=== PATIENT | male | born 1940 | race Caucasian/White ===

== ENCOUNTER → 2017-02-21 | Outpatient (CLI) | payer MEDICARE ==
[~2017-02-21] MED LIST: AMLO10TA2 PO; ASPI-555 PO; DULO60CA44 PO; GEMF600T3 PO; LEVO50TA11 PO; LEVO75TA10 PO; LOSA100T29 PO; MELO-108 PO; PROP60CA2 PO; TERA2CAP4 PO
== END | disposition home or self-care (01) ==
LOC: OIH 16:08
PROVIDERS: ATTEND Family Medicine
DX: S99.912A Unspecified injury of left ankle, initial encounter (principal); M19.072 Primary osteoarthritis, left ankle and foot; M77.32 Calcaneal spur, left foot; X58.XXXA Exposure to other specified factors, initial encounter; Y93.89 Activity, other specified; Y92.89 Other specified places as the place of occurrence of the external cause; Y99.8 Other external cause status
CPT/HCPCS: 73610

== ENCOUNTER → 2017-12-16 | Outpatient (CLI) | payer MEDICARE ==
[~2017-12-16] MED LIST changes: -AMLO10TA2 PO; +AMLO10TA6 PO; +EZET10TA26 PO; -GEMF600T3 PO; +LOSA100T20 PO; -LOSA100T29 PO; -MELO-108 PO; -PROP60CA2 PO; +RASA1TAB4 PO; -TERA2CAP4 PO; +TEST200V21 IM
== END | disposition home or self-care (01) ==
LOC: RAH 13:19
PROVIDERS: ATTEND Family Medicine
DX: M79.672 Pain in left foot (principal)
CPT/HCPCS: 73620

== ENCOUNTER → 2020-03-06 | Outpatient (CLI) | payer MEDICARE ==
[~2020-03-06] MED LIST changes: +AMLO-258 PO; -AMLO10TA6 PO; -ASPI-555 PO; +ASPI-556 PO; -EZET10TA26 PO; +EZET10TA48 PO; -LOSA100T20 PO; +LOSA100T58 PO
== END | disposition home or self-care (01) ==
LOC: RAH 11:47
PROVIDERS: ATTEND Family Medicine
DX: M77.31 Calcaneal spur, right foot (principal); M19.071 Primary osteoarthritis, right ankle and foot
CPT/HCPCS: 73630

== ENCOUNTER → 2020-07-01 | Outpatient (CLI) | payer MEDICARE ==
[2020-07-01 12:22] LABS: BASOPHILS % (AUTO) 0.3 % (0.0-5.0); EOSINOPHILS % (AUTO) 0.3 % (0.0-8.0); HEMATOCRIT 49.3 % (42-54); LYMPHOCYTES % (AUTO) 19.4 % (21.0-51.0); MEAN CORPUSCULAR HGB CONC 32.9 g/dL (32.0-36.0); MEAN CORPUSCULAR VOLUME 103.6 fL (79-99); MONOCYTES % (AUTO) 17.1 % (3.0-13.0); NEUTROPHILS % (AUTO) 53.7 % (40.0-77.0); PLATELET COUNT (AUTO) 170 K/uL (130-400); RED BLOOD CELL COUNT(AUTO) 4.76 MIL/uL (4.50-6.20); RED CELL DISTRIBUTION WIDTH 12.5 % (11.0-15.5); WHITE BLOOD COUNT (AUTO) 7.3 K/uL (4.8-10.8)
[2020-07-01 12:30] LABS: CREATININE 1.2 mg/dL (0.5-1.5); POTASSIUM 3.6 mmol/L (3.5-5.1)
== END | disposition home or self-care (01) ==
LOC: LAB 11:15
PROVIDERS: ATTEND Internal Medicine Gastroenterology
DX: R10.13 Epigastric pain (principal)
CPT/HCPCS: 36415; 80048; 85025

== ENCOUNTER → 2020-07-08 | Outpatient (CLI) | payer MEDICARE ==
[~2020-07-08] MED LIST changes: +IOHEXOL-350 75 ML VIAL IV ONE
[2020-07-08 09:03] LABS: BASOPHILS % (AUTO) 0.3 % (0.0-5.0); EOSINOPHILS % (AUTO) 0.3 % (0.0-8.0); HEMATOCRIT 45.3 % (42-54); LYMPHOCYTES % (AUTO) 23.6 % (21.0-51.0); MEAN CORPUSCULAR HGB CONC 33.1 g/dL (32.0-36.0); MEAN CORPUSCULAR VOLUME 105.6 fL (79-99); MONOCYTES % (AUTO) 13.1 % (3.0-13.0); NEUTROPHILS % (AUTO) 53.3 % (40.0-77.0); PLATELET COUNT (AUTO) 167 K/uL (130-400); RED BLOOD CELL COUNT(AUTO) 4.29 MIL/uL (4.50-6.20); RED CELL DISTRIBUTION WIDTH 12.7 % (11.0-15.5); WHITE BLOOD COUNT (AUTO) 6.1 K/uL (4.8-10.8)
[2020-07-08 09:22] LABS: ALBUMIN 3.4 g/dL (3.5-5.0); BILIRUBIN,TOTAL 0.5 mg/dL (0.2-1.0); CREATININE 1.2 mg/dL (0.5-1.5); TOTAL PROTEIN, SERUM 6.6 g/dL (6.0-8.3)
== END | disposition home or self-care (01) ==
LOC: RAH 08:11
PROVIDERS: ATTEND Internal Medicine Gastroenterology
DX: N28.1 Cyst of kidney, acquired (principal); I25.10 Atherosclerotic heart disease of native coronary artery without angina pectoris; K57.30 Diverticulosis of large intestine without perforation or abscess without bleeding
CPT/HCPCS: 36415; 74178; 80053; 85025; Q9967

== ENCOUNTER 2020-09-11 12:21 | Inpatient (IN) | payer MEDICARE ==
[~2020-09-11] VITALS: Ht 175.3 cm; Wt 91.9 kg
[2020-09-11] VITALS (9 sets, daily range): BP systolic 120–154; BP diastolic 56–82
[~2020-09-11 12:21] MED LIST changes: -IOHEXOL-350 75 ML VIAL IV ONE
[2020-09-11 12:33] LABS: BASOPHILS % (AUTO) 0.3 % (0.0-5.0); EOSINOPHILS % (AUTO) 0.7 % (0.0-8.0); HEMATOCRIT 54.2 % (42-54); MEAN CORPUSCULAR HEMOGLOBIN 34.8 pg (27.0-33.0); MEAN CORPUSCULAR HGB CONC 32.8 g/dL (32.0-36.0); MEAN CORPUSCULAR VOLUME 105.9 fL (79-99); MONOCYTES % (AUTO) 15.9 % (3.0-13.0); NEUTROPHILS % (AUTO) 55.6 % (40.0-77.0); PLATELET COUNT (AUTO) 173 K/uL (130-400); RED BLOOD CELL COUNT(AUTO) 5.12 MIL/uL (4.50-6.20); RED CELL DISTRIBUTION WIDTH 13.2 % (11.0-15.5); WHITE BLOOD COUNT (AUTO) 6.2 K/uL (4.8-10.8)
[2020-09-11 12:45] LABS: ALBUMIN 3.8 g/dL (3.5-5.0); CREATININE 1.6 mg/dL (0.5-1.5)
[2020-09-11 12:46] LABS: INR 1.02 (0.85-1.15); PROTHROMBIN TIME 11.1 SEC (9.6-11.6)
[2020-09-11 12:51] LABS: BILIRUBIN,TOTAL 0.9 mg/dL (0.2-1.0); TOTAL PROTEIN, SERUM 7.4 g/dL (6.0-8.3)
[2020-09-11 13:16] LABS: APPEARANCE,URINE Clear (CLEAR); BILIRUBIN,URINE Small (NEGATIVE); COLOR,URINE Dark Yellow (YELLOW); GLUCOSE, URINE (UA) Negative (NEGATIVE); KETONES,URINE 40 mg/dL (NEGATIVE); LEUKOCYTE ESTERASE ,URINE Negative (NEGATIVE); NITRATE,URINE Negative (NEGATIVE); OCCULT BLOOD,URINE Trace (NEGATIVE); PH,URINE 5.5 (5.0-8.0); PROTEIN,URINE 300 mg/dL (NEGATIVE)
[2020-09-11 13:32] LABS: B-TYPE NATRIURETIC PEPTIDE 89 pg/mL (0-100)
[2020-09-11 13:36] LABS: BACTERIA,URINE None Seen /HPF (None Seen); RBC,URINE 0-1 /HPF (0-1); SQUAMOUS EPITHELIAL CELL,UR 0-2 /HPF (0-2); WBC,URINE 0-1 /HPF (0-1)
[2020-09-11 13:37] LABS: FINE GRANULAR CASTS,URINE 0-2 /LPF (None Seen); HYALINE CASTS, URINE 0-1 /LPF (0-1 /LPF)
[2020-09-11] MEDS ORDERED: DiphenhydrAMINE HCL 50 MG/ML VIAL IV ONE (14:00)
[2020-09-11 14:24] LABS: ABG BASE EXCESS 0.2 mmol/L (-2.0-3.0); ABG HCO3 20.2 mmol/L (21.0-28.0); ABG OXYGEN SATURATION 97.4 % (95.0-99.0); ABG PCO2 23 mmHg (35-48)
[2020-09-11] MEDS ORDERED: METOPROLOL TARTRATE 1 MG/ML 5ML VIAL IV ONE ×3 (15:00→23:30)
[2020-09-11] MEDS ORDERED: POTASSIUM CHLORIDE 20 MEQ/100 ML BAG IV SCH (15:00)
[2020-09-11] MEDS ORDERED: AMIODARONE 150MG VIAL 150 MG in DEXTROSE 5%-WATER 100 ML IV SCH (15:00)
[2020-09-11] MEDS ORDERED: LORAZEPAM 2 MG/ML 1 ML VIAL ONE (15:16)
[2020-09-11] MEDS ORDERED: IOHEXOL-350 75 ML VIAL IV ONE (15:32)
[2020-09-11] MEDS ORDERED: LIDOCAINE HCL-MPF 1% 2ML VIAL IV PRN (22:00)
[2020-09-11] MEDS ORDERED: HYDRALAZINE 20MG/ML VIAL IV PRN (22:00)
[2020-09-11] MEDS ORDERED: ONDANSETRON 4MG INJ IV PRN (22:00)
[2020-09-11] MEDS ORDERED: POTASSIUM CHLORIDE 20MEQ/100ML 100 ML IV PRN (22:00)
[2020-09-11] MEDS ORDERED: LACTATED RINGERS 1000ML IV SCH (22:00)
[2020-09-11 22:32] LABS: HEMOGLOBIN A1C 5.7 % (4.0-6.0)
[2020-09-11 22:35] LABS: POTASSIUM 3.2 mmol/L (3.5-5.1)
[2020-09-11 22:48] LABS: AMMONIA < 10 umol/L (11-32)
[2020-09-11] MEDS: TRAZODONE HCL 50 MG TAB PO PRN (23:23)
[2020-09-11] MEDS: POTASSIUM CHLORIDE 10% ELIXIR 20 MEQ/15 ML UDCUP PO PRN (23:56)
[2020-09-12 00:05] VITALS: BP 149/89
[2020-09-12] MEDS: LACTATED RINGERS 1000ML 1,000 ML IV SCH ×3 (01:56→17:04)
[2020-09-12 04:00] VITALS: BP 134/65
[2020-09-12] MEDS: KCL 20 MEQ ERTAB PO PRN ×3 (05:21→16:49)
[2020-09-12 05:24] LABS: BASOPHILS % (AUTO) 0.3 % (0.0-5.0); EOSINOPHILS % (AUTO) 0.1 % (0.0-8.0); HEMATOCRIT 49.7 % (42-54); LYMPHOCYTES % (AUTO) 16.4 % (21.0-51.0); MEAN CORPUSCULAR HEMOGLOBIN 34.4 pg (27.0-33.0); MEAN CORPUSCULAR HGB CONC 33.2 g/dL (32.0-36.0); MEAN CORPUSCULAR VOLUME 103.8 fL (79-99); MONOCYTES % (AUTO) 17.3 % (3.0-13.0); NEUTROPHILS % (AUTO) 59.9 % (40.0-77.0); PLATELET COUNT (AUTO) 173 K/uL (130-400); RED BLOOD CELL COUNT(AUTO) 4.79 MIL/uL (4.50-6.20); RED CELL DISTRIBUTION WIDTH 13.2 % (11.0-15.5); WHITE BLOOD COUNT (AUTO) 7.7 K/uL (4.8-10.8)
[2020-09-12 05:49] LABS: CREATININE 1.4 mg/dL (0.5-1.5); POTASSIUM 3.2 mmol/L (3.5-5.1); THYROID STIMULATING HORMONE 4.85 uIU/mL (0.36-3.74)
[2020-09-12 07:39] LABS: AMPHET/METH SCREEN,URINE NEGATIVE (NEGATIVE); BARBITURATE SCREEN, URINE NEGATIVE (NEGATIVE); BENZODIAZEPINES SCREEN,URINE POSITIVE (NEGATIVE); CANNABINOID SCREEN,URINE NEGATIVE (NEGATIVE); COCAINE SCREEN,URINE NEGATIVE (NEGATIVE); OPIATE SCREEN,URINE NEGATIVE (NEGATIVE); PHENCYCLIDINE SCREEN,URINE NEGATIVE (NEGATIVE)
[2020-09-12 08:00] VITALS: BP 145/79
[2020-09-12] MEDS: METOPROLOL TARTRATE 25 MG TAB PO SCH ×2 (10:16→21:26)
[2020-09-12] MEDS: FAMOTIDINE 20MG VIAL IV SCH (10:16)
[2020-09-12] MEDS: AMLODIPINE 5 MG TAB PO SCH (10:16)
[2020-09-12] MEDS: HEPARIN 5,000 UNIT VIAL SQ SCH ×2 (10:28→21:27)
[2020-09-12 11:08] VITALS: BP 151/75
[2020-09-12] MEDS ORDERED: LORAZEPAM 2 MG/ML 1 ML VIAL ONE (12:43)
[2020-09-12] MEDS: LORAZEPAM 2 MG/ML 1 ML VIAL IVP SCH (12:47)
[2020-09-12] MEDS: ZIPRASIDONE MESYLATE 20 MG/VIAL IM SCH (13:52)
[2020-09-12 16:00] VITALS: BP 138/61
[2020-09-12 20:00] VITALS: BP 134/68
[2020-09-12] MEDS: TRAZODONE HCL 50 MG TAB PO PRN (21:26)
[2020-09-12] MEDS ORDERED: LORAZEPAM 2 MG/ML 1 ML VIAL IVP ONE (22:00)
[2020-09-13] VITALS: BP 132/42
[2020-09-13] MEDS: LACTATED RINGERS 1000ML 1,000 ML IV SCH ×2 (04:00→14:00)
[2020-09-13 04:39] LABS: BASOPHILS % (AUTO) 0.1 % (0.0-5.0); EOSINOPHILS % (AUTO) 0.1 % (0.0-8.0); HEMATOCRIT 49.5 % (42-54); MEAN CORPUSCULAR HEMOGLOBIN 34.2 pg (27.0-33.0); MEAN CORPUSCULAR HGB CONC 33.3 g/dL (32.0-36.0); MEAN CORPUSCULAR VOLUME 102.7 fL (79-99); MONOCYTES % (AUTO) 18.6 % (3.0-13.0); NEUTROPHILS % (AUTO) 54.7 % (40.0-77.0); PLATELET COUNT (AUTO) 176 K/uL (130-400); RED BLOOD CELL COUNT(AUTO) 4.82 MIL/uL (4.50-6.20); RED CELL DISTRIBUTION WIDTH 13.2 % (11.0-15.5); WHITE BLOOD COUNT (AUTO) 6.9 K/uL (4.8-10.8)
[2020-09-13 04:43] LABS: CREATININE 1.1 mg/dL (0.5-1.5); POTASSIUM 3.6 mmol/L (3.5-5.1)
[2020-09-13 07:50] VITALS: BP 143/65
[2020-09-13] MEDS: HEPARIN 5,000 UNIT VIAL SQ SCH ×2 (09:00→21:47)
[2020-09-13] MEDS: METOPROLOL TARTRATE 25 MG TAB PO SCH ×2 (11:05→21:44)
[2020-09-13] MEDS: AMLODIPINE 5 MG TAB PO SCH (11:05)
[2020-09-13] MEDS: FAMOTIDINE 20MG VIAL IV SCH (11:05)
[2020-09-13 11:10] VITALS: BP 146/71
[2020-09-13] MEDS: LORAZEPAM 2 MG/ML 1 ML VIAL IVP SCH (12:42)
[2020-09-13] MEDS: ZIPRASIDONE MESYLATE 20 MG/VIAL IM SCH (13:30)
[2020-09-13] MEDS ORDERED: LORAZEPAM 2 MG/ML 1 ML VIAL IM ONE (15:11)
[2020-09-13 16:29] VITALS: BP 132/89
[2020-09-13] MEDS: RISPERIDONE 0.5 MG TABLET PO SCH (16:29)
[2020-09-13 19:45] VITALS: BP 158/77
[2020-09-13] MEDS ORDERED: RISPERIDONE 1 MG TABLET PO SCH (21:00)
[2020-09-14 00:15] VITALS: BP 162/79
[2020-09-14 04:58] LABS: CREATININE 1.1 mg/dL (0.5-1.5); POTASSIUM 3.7 mmol/L (3.5-5.1)
[2020-09-14 06:28] LABS: MEAN CORPUSCULAR HEMOGLOBIN 34.3 pg (27.0-33.0); MEAN CORPUSCULAR HGB CONC 33.1 g/dL (32.0-36.0); MEAN CORPUSCULAR VOLUME 103.6 fL (79-99); PLATELET COUNT (AUTO) 171 K/uL (130-400); RED BLOOD CELL COUNT(AUTO) 5.02 MIL/uL (4.50-6.20); RED CELL DISTRIBUTION WIDTH 13.2 % (11.0-15.5); WHITE BLOOD COUNT (AUTO) 6.5 K/uL (4.8-10.8)
[2020-09-14 07:10] VITALS: BP 148/69
[2020-09-14] MEDS: ZIPRASIDONE MESYLATE 20 MG/VIAL IM SCH (07:41)
[2020-09-14] MEDS: LORAZEPAM 2 MG/ML 1 ML VIAL IVP SCH (07:41)
[2020-09-14 08:35] LABS: LYMPHOCYTES % (MANUAL) 10 % (22-44); MONOCYTES % (MANUAL) 17 % (2-9); REACTIVE LYMPHOCYTES 5 % (0-0); SEGMENTED NEUTROPHILS % 68 % (40-70)
[2020-09-14 08:36] LABS: PLATELET MORPHOLOGY COMMENT ADEQUATE
[2020-09-14] MEDS: METOPROLOL TARTRATE 25 MG TAB PO SCH ×2 (09:37→19:43)
[2020-09-14] MEDS: FAMOTIDINE 20MG VIAL IV SCH (09:37)
[2020-09-14] MEDS: RISPERIDONE 0.5 MG TABLET PO SCH (09:37)
[2020-09-14] MEDS: AMLODIPINE 5 MG TAB PO SCH (09:37)
[2020-09-14] MEDS: LACTATED RINGERS 1000ML 1,000 ML IV SCH ×3 (09:44→20:00)
[2020-09-14] MEDS: HEPARIN 5,000 UNIT VIAL SQ SCH ×2 (09:44→19:44)
[2020-09-14 12:00] VITALS: BP 147/60
[2020-09-14 16:00] VITALS: BP 156/70
[2020-09-14 19:22] VITALS: BP 155/74
[2020-09-14] MEDS ORDERED: RISPERIDONE 1 MG TABLET ONE (19:47)
[2020-09-14] MEDS: RISPERIDONE 1 MG TABLET PO SCH (20:20)
[2020-09-15 00:07] VITALS: BP 140/85
[2020-09-15 04:20] VITALS: BP 145/84
[2020-09-15 04:56] LABS: CREATININE 1.2 mg/dL (0.5-1.5); POTASSIUM 3.8 mmol/L (3.5-5.1)
[2020-09-15] MEDS: LACTATED RINGERS 1000ML 1,000 ML IV SCH (05:03)
[2020-09-15 08:00] VITALS: BP 108/56
[2020-09-15] MEDS: FAMOTIDINE 20MG VIAL IV SCH (09:29)
[2020-09-15] MEDS: AMLODIPINE 5 MG TAB PO SCH (09:30)
[2020-09-15] MEDS: RISPERIDONE 1 MG TABLET PO SCH ×2 (09:30→20:26)
[2020-09-15] MEDS: METOPROLOL TARTRATE 25 MG TAB PO SCH ×2 (09:30→20:25)
[2020-09-15] MEDS: HEPARIN 5,000 UNIT VIAL SQ SCH ×2 (09:31→20:34)
[2020-09-15 12:00] VITALS: BP 131/66
[2020-09-15] MEDS ORDERED: TEST200V21 IM (12:52)
[2020-09-15] MEDS ORDERED: PROP60CA2 PO (12:52)
[2020-09-15] MEDS ORDERED: ROSU10TA28 PO (12:52)
[2020-09-15] MEDS ORDERED: CA C1TAB95 PO (12:52)
[2020-09-15] MEDS ORDERED: GLUC100026 PO (12:52)
[2020-09-15] MEDS ORDERED: ISOS10TA8 PO (12:52)
[2020-09-15] MEDS ORDERED: AEC81 PO (12:52)
[2020-09-15] MEDS ORDERED: MELA3TAB41 PO (12:52)
[2020-09-15] MEDS ORDERED: LEVO75CA5 PO (12:52)
[2020-09-15] MEDS ORDERED: AMIT25TA9 PO (12:52)
[2020-09-15] MEDS ORDERED: CETI10TA57 PO (12:52)
[2020-09-15] MEDS ORDERED: AMLO-258 PO (12:52)
[2020-09-15] MEDS ORDERED: ACID1TAB8 PO (12:52)
[2020-09-15] MEDS ORDERED: DULO60CA64 PO (12:52)
[2020-09-15] MEDS ORDERED: BUPR-49 PO (12:52)
[2020-09-15] MEDS ORDERED: CARB1CAP PO (12:52)
[2020-09-15] MEDS ORDERED: TAMS-1 PO (12:52)
[2020-09-15] MEDS ORDERED: EZET10TA48 PO (12:52)
[2020-09-15] MEDS ORDERED: OMEP20CA12 PO (12:52)
[2020-09-15] MEDS ORDERED: CARBIDOPA-LEVODOPA 25-100 TAB PO ONE (13:00)
[2020-09-15] MEDS: CARBIDOPA-LEVODOPA 25-100 TAB PO SCH ×2 (13:05→20:25)
[2020-09-15 16:23] VITALS: BP 125/67
[2020-09-15 20:00] VITALS: BP 126/73
[2020-09-15] MEDS: ISOSORBIDE MONONITRATE 20 MG TABLET PO SCH (20:26)
[2020-09-15] MEDS: TRAZODONE HCL 50 MG TAB PO PRN (23:41)
[2020-09-16] VITALS: BP 111/63
[2020-09-16 04:00] VITALS: BP 118/68
[2020-09-16 05:42] LABS: BASOPHILS % (AUTO) 0.3 % (0.0-5.0); EOSINOPHILS % (AUTO) 0.2 % (0.0-8.0); HEMATOCRIT 52.6 % (42-54); LYMPHOCYTES % (AUTO) 13.6 % (21.0-51.0); MEAN CORPUSCULAR HEMOGLOBIN 34.7 pg (27.0-33.0); MEAN CORPUSCULAR HGB CONC 33.1 g/dL (32.0-36.0); MONOCYTES % (AUTO) 13.6 % (3.0-13.0); PLATELET COUNT (AUTO) 184 K/uL (130-400); RED BLOOD CELL COUNT(AUTO) 5.01 MIL/uL (4.50-6.20); RED CELL DISTRIBUTION WIDTH 13.8 % (11.0-15.5); WHITE BLOOD COUNT (AUTO) 6.5 K/uL (4.8-10.8)
[2020-09-16 05:51] LABS: CREATININE 1.3 mg/dL (0.5-1.5); MAGNESIUM 2.3 mg/dL (1.80-2.40); POTASSIUM 3.8 mmol/L (3.5-5.1)
[2020-09-16] MEDS ORDERED: LEVOTHYROXINE 75 MCG TABLET ONE (05:57)
[2020-09-16] MEDS: LEVOTHYROXINE 75 MCG TABLET PO SCH (06:16)
[2020-09-16 07:52] VITALS: BP 111/66
[2020-09-16] MEDS: AMLODIPINE 5 MG TAB PO SCH (09:00)
[2020-09-16] MEDS: CARBIDOPA-LEVODOPA 25-100 TAB PO SCH ×2 (10:35→20:52)
[2020-09-16] MEDS: RISPERIDONE 1 MG TABLET PO SCH ×2 (10:35→20:51)
[2020-09-16] MEDS: FAMOTIDINE 20MG TAB PO SCH (10:35)
[2020-09-16] MEDS: PANTOPRAZOLE 40 MG TAB DR PO SCH (10:35)
[2020-09-16] MEDS: ASPIRIN 81 MG EC TAB PO SCH (10:35)
[2020-09-16] MEDS: TAMSULOSIN HCL 0.4 MG CAP.ER.24H PO SCH (10:35)
[2020-09-16] MEDS: EZETIMIBE 10 MG TAB PO SCH (10:35)
[2020-09-16] MEDS: METOPROLOL TARTRATE 25 MG TAB PO SCH ×2 (10:35→20:51)
[2020-09-16] MEDS: HEPARIN 5,000 UNIT VIAL SQ SCH (10:39)
[2020-09-16 11:44] VITALS: BP 117/60
[2020-09-16 16:00] VITALS: BP 111/66
[2020-09-16 20:00] VITALS: BP 117/69
[2020-09-16] MEDS: TRAZODONE HCL 50 MG TAB PO PRN (20:51)
[2020-09-16] MEDS: ISOSORBIDE MONONITRATE 20 MG TABLET PO SCH (20:51)
[2020-09-17] VITALS (7 sets, daily range): BP systolic 105–161; BP diastolic 60–74
[2020-09-17] MEDS: LEVOTHYROXINE 75 MCG TABLET PO SCH (05:55)
[2020-09-17 06:29] LABS: CREATININE 1.2 mg/dL (0.5-1.5); MAGNESIUM 2.1 mg/dL (1.80-2.40); POTASSIUM 3.7 mmol/L (3.5-5.1)
[2020-09-17] MEDS: POTASSIUM CHLORIDE 10% ELIXIR 20 MEQ/15 ML UDCUP PO PRN (06:40)
[2020-09-17] MEDS: ASPIRIN 81 MG EC TAB PO SCH (09:37)
[2020-09-17] MEDS: RISPERIDONE 1 MG TABLET PO SCH ×2 (09:37→21:17)
[2020-09-17] MEDS: METOPROLOL TARTRATE 25 MG TAB PO SCH ×3 (09:37→18:15)
[2020-09-17] MEDS: FAMOTIDINE 20MG TAB PO SCH (09:37)
[2020-09-17] MEDS: AMLODIPINE 5 MG TAB PO SCH (09:37)
[2020-09-17] MEDS: PANTOPRAZOLE 40 MG TAB DR PO SCH (09:37)
[2020-09-17] MEDS: EZETIMIBE 10 MG TAB PO SCH (09:37)
[2020-09-17] MEDS: TAMSULOSIN HCL 0.4 MG CAP.ER.24H PO SCH (09:37)
[2020-09-17] MEDS: CARBIDOPA-LEVODOPA 25-100 TAB PO SCH ×2 (09:37→21:16)
[2020-09-17] MEDS: ENOXAPARIN SODIUM 30 MG/0.3 ML SQ SCH (09:38)
[2020-09-17] MEDS: ISOSORBIDE MONONITRATE 20 MG TABLET PO SCH (21:16)
[2020-09-18 04:18] VITALS: BP 118/65
[2020-09-18 05:56] LABS: BASOPHILS % (AUTO) 0.4 % (0.0-5.0); EOSINOPHILS % (AUTO) 0.4 % (0.0-8.0); LYMPHOCYTES % (AUTO) 20.2 % (21.0-51.0); MEAN CORPUSCULAR HEMOGLOBIN 34.6 pg (27.0-33.0); MEAN CORPUSCULAR HGB CONC 33.3 g/dL (32.0-36.0); MEAN CORPUSCULAR VOLUME 103.7 fL (79-99); MONOCYTES % (AUTO) 18.5 % (3.0-13.0); NEUTROPHILS % (AUTO) 53.7 % (40.0-77.0); PLATELET COUNT (AUTO) 163 K/uL (130-400); RED BLOOD CELL COUNT(AUTO) 4.92 MIL/uL (4.50-6.20); RED CELL DISTRIBUTION WIDTH 13.7 % (11.0-15.5); WHITE BLOOD COUNT (AUTO) 5.5 K/uL (4.8-10.8)
[2020-09-18 06:01] LABS: CREATININE 1.2 mg/dL (0.5-1.5); MAGNESIUM 2.1 mg/dL (1.80-2.40); POTASSIUM 3.5 mmol/L (3.5-5.1)
[2020-09-18] MEDS: LEVOTHYROXINE 75 MCG TABLET PO SCH (06:01)
[2020-09-18] MEDS: POTASSIUM CHLORIDE 10% ELIXIR 20 MEQ/15 ML UDCUP PO PRN (06:32)
[2020-09-18 07:50] VITALS: BP 138/73
[2020-09-18] MEDS ORDERED: DILTIAZEM 120MG SR CAP PO SCH (08:00)
[2020-09-18] MEDS: METOPROLOL SUCCINATE 50 MG TAB.SR.24H PO SCH (08:07)
[2020-09-18] MEDS: CARBIDOPA-LEVODOPA 25-100 TAB PO SCH ×2 (08:07→19:50)
[2020-09-18] MEDS: EZETIMIBE 10 MG TAB PO SCH (08:07)
[2020-09-18] MEDS: TAMSULOSIN HCL 0.4 MG CAP.ER.24H PO SCH (08:07)
[2020-09-18] MEDS: ASPIRIN 81 MG EC TAB PO SCH (08:07)
[2020-09-18] MEDS: RISPERIDONE 1 MG TABLET PO SCH ×2 (08:07→19:50)
[2020-09-18] MEDS: FAMOTIDINE 20MG TAB PO SCH (08:07)
[2020-09-18] MEDS: PANTOPRAZOLE 40 MG TAB DR PO SCH (08:07)
[2020-09-18] MEDS: ENOXAPARIN SODIUM 30 MG/0.3 ML SQ SCH (08:08)
[2020-09-18] MEDS: DILTIAZEM 120MG SR CAP PO SCH (08:48)
[2020-09-18] MEDS ORDERED: HYDROCORTISONE 1% CREAM 28G TP SCH (09:30)
[2020-09-18 11:13] VITALS: BP 115/54
[2020-09-18] MEDS: KCL 20 MEQ ERTAB PO PRN (11:14)
[2020-09-18 16:51] VITALS: BP 149/75
[2020-09-18 19:47] VITALS: BP 135/69
[2020-09-18] MEDS: ISOSORBIDE MONONITRATE 20 MG TABLET PO SCH (19:51)
[2020-09-19] VITALS: BP 128/73
[2020-09-19 04:08] VITALS: BP 124/59
[2020-09-19] MEDS: LEVOTHYROXINE 75 MCG TABLET PO SCH (05:45)
[2020-09-19 06:28] LABS: CREATININE 1.1 mg/dL (0.5-1.5); POTASSIUM 4.1 mmol/L (3.5-5.1)
[2020-09-19 08:00] VITALS: BP 144/74
[2020-09-19 09:11] LABS: BASOPHILS % (AUTO) 0.6 % (0.0-5.0); EOSINOPHILS % (AUTO) 0.6 % (0.0-8.0); HEMATOCRIT 49.2 % (42-54); LYMPHOCYTES % (AUTO) 18.2 % (21.0-51.0); MEAN CORPUSCULAR HEMOGLOBIN 34.2 pg (27.0-33.0); MEAN CORPUSCULAR HGB CONC 32.1 g/dL (32.0-36.0); MEAN CORPUSCULAR VOLUME 106.5 fL (79-99); MONOCYTES % (AUTO) 15.1 % (3.0-13.0); NEUTROPHILS % (AUTO) 57.7 % (40.0-77.0); PLATELET COUNT (AUTO) 147 K/uL (130-400); RED BLOOD CELL COUNT(AUTO) 4.62 MIL/uL (4.50-6.20); RED CELL DISTRIBUTION WIDTH 13.6 % (11.0-15.5); WHITE BLOOD COUNT (AUTO) 5.1 K/uL (4.8-10.8)
[2020-09-19] MEDS: EZETIMIBE 10 MG TAB PO SCH (09:18)
[2020-09-19] MEDS: TAMSULOSIN HCL 0.4 MG CAP.ER.24H PO SCH (09:18)
[2020-09-19] MEDS: DILTIAZEM 120MG SR CAP PO SCH (09:19)
[2020-09-19] MEDS: CARBIDOPA-LEVODOPA 25-100 TAB PO SCH (09:19)
[2020-09-19] MEDS: FAMOTIDINE 20MG TAB PO SCH (09:19)
[2020-09-19] MEDS: METOPROLOL SUCCINATE 50 MG TAB.SR.24H PO SCH (09:19)
[2020-09-19] MEDS: ASPIRIN 81 MG EC TAB PO SCH (09:20)
[2020-09-19] MEDS: PANTOPRAZOLE 40 MG TAB DR PO SCH (09:20)
[2020-09-19] MEDS: RISPERIDONE 1 MG TABLET PO SCH (09:20)
[2020-09-19] MEDS: ENOXAPARIN SODIUM 30 MG/0.3 ML SQ SCH (09:21)
[2020-09-19 12:00] VITALS: BP 132/64
[2020-09-19 16:00] VITALS: BP 144/68
[2020-09-20] MEDS ORDERED: METOPROLOL SUCCINATE 50 MG TAB.SR.24H PO SCH (09:00)
== END 2020-09-19 19:25 | DRG 308 ==
LOC: EDH 12:21 → EDHIP 21:50 → OBSVTOIN 21:50 → 4BH 09-12 00:05 → 4CH 09-15 04:17 → 2AH 09-15 23:46 → 4CH 09-15 23:56
PROVIDERS: ADMIT Hospitalist; ATTEND Hospitalist
DX: I48.0 Paroxysmal atrial fibrillation (principal); G93.41 Metabolic encephalopathy; I47.1 Supraventricular tachycardia; E87.6 Hypokalemia; E03.9 Hypothyroidism, unspecified; E11.9 Type 2 diabetes mellitus without complications; F02.80 Dementia in other diseases classified elsewhere, unspecified severity, without behavioral disturbance, psychotic disturbance, mood disturbance, and anxiety; F41.9 Anxiety disorder, unspecified; G20 Parkinson's disease; I25.10 Atherosclerotic heart disease of native coronary artery without angina pectoris; F32.9 Major depressive disorder, single episode, unspecified; K21.9 Gastro-esophageal reflux disease without esophagitis; I45.10 Unspecified right bundle-branch block; J30.9 Allergic rhinitis, unspecified; I10 Essential (primary) hypertension; Z20.822 Contact with and (suspected) exposure to COVID-19; L82.1 Other seborrheic keratosis; Z87.891 Personal history of nicotine dependence; Z79.899 Other long term (current) drug therapy; Z82.49 Family history of ischemic heart disease and other diseases of the circulatory system
CPT/HCPCS: 36415; 36600; 70450; 70496; 70498; 71045; 80048; 80053; 80061; 80305; 81001; 82140; 82550; 82803; 82948; 83036; 83735; 83880; 84132; 84443; 84484; 85025; 85610; 85730; 87635; 93005; 97039; 99291; C9803; G0378; J0282; J1200; J1644; J1650; J2060; J3480; J3486; J3490; J7060; J7120; Q9967